=== PATIENT | male | born 1955 | race Caucasian/White ===

== ENCOUNTER 2019-12-28 12:31 | Observation (INO) | payer SELFPAY ==
[2019-12-28] MEDS ORDERED: ASPIRIN TABLET 325 MG TAB PO ONE (12:47)
[2019-12-28] MEDS ORDERED: SODIUM CHLORIDE 0.9% (FLUSH) 10 ML SYG IV PRN ×2 (12:47→16:34)
--- NOTE | 2019-12-28 12:51 | ED.PDOC ---
History of Present Illness - General Time Seen by Provider: 12/28/19 12:41 Source: patient, RN notes reviewed, Vital Signs reviewed, family Exam Limitations: no limitations - History of Present Illness Initial Comments: Pt is a 64 yo male with PMH of HTN and hypercholesterolemia who presents to ED with sone for 3 day h/o confusion and intermitent expressive aphasia. Pt states he has been under a lot of stress at work recently and has not slept well for several days. Son states the past 3 days he has had episodes of slurred speech and episodes where he starts a sentence, but cant find the words he is trying to say. Pt states he just feels tired and attributes speech abnormalities to his tongue being dry. He denies any weakness, SANTOS, NVD, CP, SOB or dizziness. Allergies/Adverse Reactions: Allergies NO KNOWN ALLERGY Allergy (Verified 03/12/15 06:09) Home Medications: Ambulatory Orders Ascorbic Acid [Vitamin C] 2,000 mg PO DAILY 03/12/15 B-Complex Vitamins [Vitamin B Complex] 1 tab PO DAILY 03/12/15 Cholecalciferol [Vitamin D3] 1,000 unit PO DAILY 03/12/15 Coenzyme Q10 (Ubidecarenone) [Coq-10] 1 cap PO DAILY 03/12/15 Non-Formulary Medication 1 ea PO DAILY 03/12/15 Non-Formulary Medication 1 ea PO DAILY 03/12/15 [place]-3 Fatty Acids [[place] 3] 2 cap PO DAILY 03/12/15 Pomegranate (Punica Granatum) [Pomegranate Extract] 750 mg PO DAILY 03/12/15 Telmisartan-Hydrochlorothiazid [Micardis Hct 40-12.5 mg] 1 tab PO DAILY 03/12/15 Review of Systems - Review of Systems Constitutional: Denies: chills, fever, weakness EENTM: Denies: blurred vision, nose congestion, throat swelling Respiratory: Denies: cough, short of breath Cardiology: Denies: chest pain, palpitations, syncope Gastrointestinal/Abdominal: Denies: abdominal pain, diarrhea, nausea, vomiting Genitourinary: States: no symptoms reported Musculoskeletal: Denies: back pain, neck pain Skin: States: no symptoms reported Neurological: States: see HPI All other Systems: Reviewed and Negative Past Medical History (General) - Patient Medical History Hx Congestive Heart Failure: No Hx Diabetes: No Family Medical History - Family History Mother Family History: No Known Physical Exam - Physical Exam General Appearance: Alert, Comfortable, No apparent distress, Well Developed Ears, Nose, Throat: normal pharynx Neck: non-tender, full range of motion, supple Respiratory: chest non-tender, lungs clear, normal breath sounds, no respiratory distress, no accessory muscle use Cardiovascular/Chest: normal peripheral pulses, regular rate, rhythm, no edema, no murmur Gastrointestinal/Abdominal: non tender, soft, no pulsatile mass Back Exam: normal inspection, no vertebral tenderness Extremity: normal range of motion, no calf tenderness 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 Speech is fluent and conversational. Can name President and next Holiday. Oriented x 4. Strength is 5/5 in all 4 extremities. Skin Exam: normal color, warm/dry Progress - Progress Progress: 12/28/19 14:13 Patient presents with confusion and altered speech for the past 3 days. On exam, patient has no neuro deficits. CT of the head is unremarkable. Labs show electrolyte maladies of hyponatremia of 127 and hypokalemia of 3.1. Discussed with patient results and possible hyponatremia causing his symptoms. He agrees with admission for further treatment and evaluation. 12/28/19 14:51 D/W Jarred Mir, hospitalist, will place in observation. Pt agrees with plan. - Results/Orders Results/Orders: EKG- NSR, rate 76, normal intervals, no ST abnormality CHEST XRAY Study: Single Frontal Radiograph of the Chest. Indication:Slurred speech Comparison: None Impression: Cardiomegaly. Mild right basilar atelectasis versus developing consolidation. Short-term follow-up recommended. No pleural effusion or pneumothorax. CT HEAD Impression: No acute intracranial abnormality by CT. If high clinical concern for acute ischemia, correlation with MRI recommended. 12/28/19 12:47 IV Care:Saline Lock per Protoc QSHIFT Telemetry .ONCE Sodium Chloride 0.9% (Flush) [Saline Flush Syringe] 10 ml IV PRN PRN 12/28/19 13:00 EKG STAT Laboratory Results - last 24 hr 12/28/19 12/28/19 12/28/19 12:55 12:55 12:55 WBC 8.4 RBC 4.64 L Hgb 15.5 Hct 43.8 MCV 94.4 H MCH 33.5 H MCHC 35.5 RDW 14.0 Plt Count 195 MPV 7.4 Absolute Neuts (auto) 6.40 Absolute Lymphs (auto) 1.20 Absolute Monos (auto) 0.80 Absolute Eos (auto) 0.10 Absolute Basos (auto) 0.00 Neutrophils % 76.4 Lymphocytes % 13.6 L Monocytes % 8.9 Eosinophils % 0.6 L Basophils % 0.5 PT 10.3 INR 1.04 PTT (SP) 25.3 Sodium 127 L Potassium 3.1 L Chloride 88 L Carbon Dioxide 26 Anion Gap 16.1 BUN 8 Creatinine 0.75 BUN/Creatinine Ratio 10.7 Random Glucose 102 Serum Osmolality 253.7 L* Calcium 9.0 Total Bilirubin 0.9 AST 26 ALT 28 Alkaline Phosphatase 58 Creatine Kinase 276 H* CK-MB (CK-2) 11.2 H* CK-MB (CK-2) % 4.06 H Troponin I < 0.02 Serum Total Protein 7.4 Albumin 4.1 Globulin 3.3 Albumin/Globulin Ratio 1.2 Urine Color Urine Appearance Urine pH Ur Specific [place] Urine Protein Urine Glucose (UA) Urine Ketones Urine Blood Urine Nitrite Urine Bilirubin Urine Urobilinogen Ur Leukocyte Esterase Urine RBC Urine WBC Ur Epithelial Cells Urine Bacteria 12/28/19 13:13 WBC RBC Hgb Hct MCV MCH MCHC RDW Plt Count MPV Absolute Neuts (auto) Absolute Lymphs (auto) Absolute Monos (auto) Absolute Eos (auto) Absolute Basos (auto) Neutrophils % Lymphocytes % Monocytes % Eosinophils % Basophils % PT INR PTT (SP) Sodium Potassium Chloride Carbon Dioxide Anion Gap BUN Creatinine BUN/Creatinine Ratio Random Glucose Serum Osmolality Calcium Total Bilirubin AST ALT Alkaline Phosphatase Creatine Kinase CK-MB (CK-2) CK-MB (CK-2) % Troponin I Serum Total Protein Albumin Globulin Albumin/Globulin Ratio Urine Color Yellow Urine Appearance Clear Urine pH 7.0 Ur Specific [place] 1.010 Urine Protein Negative Urine Glucose (UA) Negative Urine Ketones 40 H Urine Blood Trace-intact H Urine Nitrite Negative Urine Bilirubin Negative Urine Urobilinogen 0.2 Ur Leukocyte Esterase Negative Urine RBC 5-10 H Urine WBC 1-3 Ur Epithelial Cells 0-1 Urine Bacteria Rare Departure - Departure Clinical Impression: Hyponatremia, Hypokalemia Altered mental state Qualifiers: Altered mental status type: somnolence Qualified Code(s): R40.0 - Somnolence Time of Disposition: 14:16 Disposition: Admit Patient Condition: Fair Referrals: JOLYNN CAMACHO [Primary Care Provider] - 1-2 Weeks Home Medications: Ambulatory Orders Ascorbic Acid [Vitamin C] 2,000 mg PO DAILY 03/12/15 B-Complex Vitamins [Vitamin B Complex] 1 tab PO DAILY 03/12/15 Cholecalciferol [Vitamin D3] 1,000 unit PO DAILY 03/12/15 Coenzyme Q10 (Ubidecarenone) [Coq-10] 1 cap PO DAILY 03/12/15 Non-Formulary Medication 1 ea PO DAILY 03/12/15 Non-Formulary Medication 1 ea PO DAILY 03/12/15 [place]-3 Fatty Acids [[place] 3] 2 cap PO DAILY 03/12/15 Pomegranate (Punica Granatum) [Pomegranate Extract] 750 mg PO DAILY 03/12/15 Telmisartan-Hydrochlorothiazid [Micardis Hct 40-12.5 mg] 1 tab PO DAILY 03/12/15 Decision To Admit - Decistion To Admit Decision to Admit Reason: Admit from ER Decision to Admit Date: 12/28/19 Decision to Admit Time: 14:15
--- NOTE | 2019-12-28 13:28 | RAD ---
Study: Single Frontal Radiograph of the Chest. Indication:Slurred speech Comparison: None Impression: Cardiomegaly. Mild right basilar atelectasis versus developing consolidation. Short-term follow-up recommended. No pleural effusion or pneumothorax. Electronically signed by: Dorian Noland MD 12/28/2019 1:27 PM CDT
--- NOTE | 2019-12-28 13:28 | CT ---
Study: CT of the Head. Indication: slurred speech Technique: Axial CT images of the head were acquired without intravenous contrast. This exam was performed according to our departmental dose-optimization program, which includes automated exposure control, adjustment of the mA and/or kV according to patient size and/or use of iterative reconstruction technique. Comparison: None. Findings: No acute ischemia, acute hemorrhage, mass, mass effect, midline shift, or extra-axial fluid collection identified by CT. Ventricles are normal in configuration without hydrocephalus. Brain parenchyma demonstrates a normal appearance for patient age. Paranasal sinuses are adequately aerated. Mastoid air cells are adequately aerated. Osseous structures and soft tissues are unremarkable. Impression: No acute intracranial abnormality by CT. If high clinical concern for acute ischemia, correlation with MRI recommended. Electronically signed by: Dorian Noland MD 12/28/2019 1:26 PM CDT
--- NOTE | 2019-12-28 15:36 | HP ---
SUPERVISING PHYSICIAN: Brian Moy MD CHIEF COMPLAINT: Mild confusion with some slurred speech. HISTORY OF PRESENT ILLNESS: Mr. Hatch is a 64-year-old male patient with a past medical history of hypertension, hypercholesterolemia and chronic alcohol abuse who presented to the Emergency Room at the request of his son after he had 3 days of mild confusion and intermittent expressive aphasia. The patient endorses that he has been under a lot of stress at work and has not been sleeping for well over a week. His son endorses that in the last 3 days, he feels like his dad has had some slurred speech, he has been staying up all night long and just did not seem to be acting himself at times. The patient denied any headaches, nausea, vomiting, diarrhea, chest pain, shortness of breath or dizziness. He does endorse that he drinks about 8 to 10 beers a day, but can quit anytime he wants to. On exam in the ER, he had no obvious neurologic deficits, but his labs did show he had mild hyponatremia with a sodium of 127 with serum osmolality 253. Magnesium was a little low at 1.6. Given his hyponatremia and his neurological symptoms, the patient is going to be placed in observation for close neurological monitoring and management. He was placed in observation in stable condition. PAST MEDICAL HISTORY: 1. Hypertension. 2. Hypercholesterolemia. PAST SURGICAL HISTORY: No major surgeries. HOME MEDICATIONS: 1. Micardis 40-12.5 1 tablet daily. 2. Wellbutrin 150 mg daily. 3. Multiple vitamin [id number] supplements. 4. Vitamin D3. ALLERGIES: NO KNOWN DRUG ALLERGIES. FAMILY HISTORY: His mother and father are both still alive. Father is 85 with a history of myocardial infarction and diabetes. Mother is still alive at 82 with some stomach problems. He has 3 sisters who are all healthy. SOCIAL HISTORY: The patient does drink alcohol on a regular basis. He states he drinks about 8 beers a day. He also smokes about 2 packs of cigarettes a day. He has a significant other female. He has a stepson. He is a contract pumper. He does not use any illicit drugs. He lives in [place], [place]. REVIEW OF SYSTEMS: CONSTITUTIONAL: Denies any fevers, chills or generalized weakness. HEENT: Negative for blurred vision, headaches, sore throats, earaches, nasal congestion. RESPIRATORY: Negative for coughing, wheezing or shortness of breath. CARDIOVASCULAR: Negative for chest pain, palpitations or syncopal episodes. GASTROINTESTINAL: Negative for nausea, vomiting, diarrhea, constipation or abdominal pain. GENITOURINARY: Negative for dysuria, hematuria, polyuria. MUSCULOSKELETAL: Negative for back pain, joint pain or swelling. SKIN: Negative for lesions, rashes, moles or unexplained changes. NEUROLOGIC: As noted in history of present illness. HEMATOLOGIC: Negative for easy bruising, unexplained bleeding or transfusion reactions. PHYSICAL EXAMINATION: VITAL SIGNS: Temperature 98.2, pulse 80, blood pressure 146/95, respirations 18, saturation 98% on room air. GENERAL: The patient is comfortable, in no acute distress. He is a little anxious, but he is alert. HEENT: Tympanic membranes clear bilaterally. Oropharynx is pink, moist without any lesions. NECK: Supple, nontender with full range of motion. No jugular venous distention noted. RESPIRATORY: Lung sounds are clear to auscultation bilaterally without any rhonchi, wheezes or rales. CARDIOVASCULAR: Regular rate and rhythm without any appreciable murmurs, gallops, or rubs. ABDOMEN: Soft, nontender. Positive bowel sounds. EXTREMITIES: There is no cyanosis, clubbing or edema. BACK: No vertebral or CVA tenderness. NEUROLOGIC: Cranial nerves II-XII are grossly intact. Speech was fluent and conversant. There were no obvious deficits. Strength was 5/5 in all 4 extremities. Facial features are symmetrical. Extraocular movements are within normal limits. There is no nystagmus noted. The patient is alert and oriented times three. SKIN: Warm, pink and dry. LABORATORY: CBC showed white count 8,400 without a left shift, hemoglobin 15.5, hematocrit 42.8, platelet count 195,000. Coagulation studies showed normal PT, PTT. Chemistries showed sodium 127, potassium 3.1, BUN 8, creatinine 0.75, serum osmolality 253. Magnesium low at 1.6. Liver functions all within normal limits. CK a little elevated at 276. Troponin less than 0.02. Urinalysis showed 40 ketones, trace of intact blood and microscopic revealed 5 to 10 RBCs. His toxicology screen was negative for both alcohol and all other as tested. RADIOLOGY: CT of the head per radiologic interpretation showed no acute intracranial abnormalities. Single-view chest x-ray per radiologic interpretation showed cardiomegaly with some mild basilar atelectasis versus developing consolidation. No pleural effusions or pneumothorax. ASSESSMENT: 1. Hyponatremia, moderate. 2. History of chronic alcohol abuse in the form of beer, possibly exacerbating #1. 3. Hypertension, poorly controlled with Micardis with thiazide diuretic possibly contributing to #1. 4. Nicotine addiction in a smoker. PLAN: Mr. Hatch is going to be placed in observation overnight for close neurological monitoring and telemetry given his hyponatremia and reported symptoms. Given he does drink quite heavily, he says he has not drank in 3 days, just to be cautious, we will put him on some Librium p.r.n. as needed for anxiety as well as I will give him some IV fluids in the form of multivitamin infusion with some thiamine. We will recheck his labs in the morning. He will have neuro checks overnight. He will be on Lovenox. Until the patient can transition to outpatient management, which I anticipate will probably be within the next 24 to 48 hours, we will continue to monitor and treat as needed. #[id number] [facility]
[2019-12-28] MEDS ORDERED: ACETAMINOPHEN 325 MG TAB PO PRN (16:34)
[2019-12-28] MEDS ORDERED: ONDANSETRON INJ 4 MG/2 ML VIAL IV PRN (16:34)
[2019-12-28] MEDS ORDERED: chlordiazePOXIDE HCL 25 MG CAP PO PRN (16:38)
[2019-12-28] MEDS ORDERED: POTASSIUM CHLORIDE 20 MEQ TAB PO ONE (16:40)
[2019-12-28] MEDS ORDERED: IV SET AND CAP CHANGE INJ INJ SCH (17:00)
[2019-12-28] MEDS ORDERED: MULTIPLE VITAMIN INJ 10 ML, THIAMINE HCL INJ 100 MG in SODIUM CHLORIDE 0.9% 1000ML 1,00... IVS SCH (17:00)
[2019-12-28] MEDS ORDERED: MAGNESIUM SULFATE PREMIX 2GM 2 GM in PREMIX BAG 1 BAG IVPB ONE (20:39)
[2019-12-28] MEDS ORDERED: MAGNESIUM SULFATE PREMIX 2GM 50 ML IVPB ONE (20:46)
[2019-12-28] MEDS ORDERED: TEMAZEPAM 15 MG CAP PO PRN (22:22)
[2019-12-29] MEDS ORDERED: NICOTINE PATCH 21 MG TD ONE (07:02)
[2019-12-29] MEDS ORDERED: Wellbutrin XL 150 MG TAB PO SCH (09:00)
[2019-12-29] MEDS ORDERED: REMOVE OLD PATCH TOP SCH (09:00)
[2019-12-29] MEDS ORDERED: NICOTINE PATCH 21 MG TD SCH (09:00)
[2019-12-29 10:41] VITALS: BP 125/81; TEMP 98.1; O2SAT 94
[2019-12-29] MEDS ORDERED: ENOXAPARIN SODIUM 40 MG/0.4 ML SYG SUBCU SCH (21:00)
--- NOTE | 2020-01-04 08:13 | DS ---
SUPERVISING PHYSICIAN: Brian Moy MD ADMISSION DIAGNOSIS: 1. Hyponatremia, moderate. 2. History of chronic alcohol abuse. 3. Hypertension, poorly controlled. 4. Nicotine addiction in a smoker. DISCHARGE DIAGNOSIS: 1. Moderate hyponatremia, resolved. 2. History of chronic alcohol abuse. 3. Hypertension, poorly controlled. 4. Nicotine addiction in a smoker. REASON FOR HOSPITALIZATION: Mr. Hatch is a 64-year-old male patient with a past medical history of hypertension, hypercholesterolemia and chronic alcohol abuse who presented to the Emergency Room at the request of his son after he had 3 days of mild confusion and intermittent expressive aphasia. The patient endorses that he has been under a lot of stress at work and has not been sleeping for well over a week. His son endorses that in the last 3 days, he feels like his dad has had some slurred speech, he has been staying up all night long and just did not seem to be acting himself at times. The patient denied any headaches, nausea, vomiting, diarrhea, chest pain, shortness of breath or dizziness. He does endorse that he drinks about 8 to 10 beers a day, but can quit anytime he wants to. On exam in the ER, he had no obvious neurologic deficits, but his labs did show he had mild hyponatremia with a sodium of 127 with serum osmolality 253. Magnesium was a little low at 1.6. Given his hyponatremia and his neurological symptoms, the patient is going to be placed in observation for close neurological monitoring and management. He was placed in observation in stable condition. LABORATORY: White count 8,400, hemoglobin 15.4, hematocrit 43.8, platelet count 195,000. Differential is without a left shift. Coagulation studies were within normal limits. On discharge, his electrolytes were normalized. His sodium had gone from 127 to 137. Serum osmolality went from 253 to 270. Magnesium was normalized at 2.2 from 1.6 on admission. Urinalysis showed 40 ketones, trace blood, 5 to 10 RBCs. RADIOLOGY: Chest x-ray per radiologic interpretation showed cardiomegaly with a mild right basilar atelectasis versus developing consolidation. CT of the head per radiologic interpretation showed no acute intracranial abnormalities. EKG showed a sinus rhythm with a few PACs, no ST or T-wave changes to indicate any acute ischemia. HOSPITAL COURSE: Mr. Hatch was admitted for moderate hyponatremia. He was put on fluid restrictions. His hydrochlorothiazide was held and labs rechecked the next morning and he was found to have normalized his sodium. He had clinically improved well enough to continue with outpatient management. Therefore, he was discharged to followup with Dr. Fabian Rushing, his primary care provider. PLAN: Mr. Hatch is discharged on 12/29/[address] Fabian Rushing in one to two weeks in [place]. He was not to take his Micardis until resumed by his doctor. I did give him a prescription for telmisartan 40 mg because it was felt the hydrochlorothiazide in his Micardis was causing some of his hyponatremia as well as possibly related to his drinking habits. He was encouraged to stop drinking as well as to stop smoking. He was to follow a regular diet as tolerated and increase activity as tolerated. He was to return to the ED if he had any concerning symptoms. MEDICATIONS PRESCRIBED ON DISCHARGE: 1. Telmisartan 40 mg daily, #14, no refills. CONDITION ON DISCHARGE: Stable and improved. DISPOSITION: The patient was discharged home. #[id number] [facility]
== END 2019-12-29 11:52 | disposition home or self-care (01) ==
LOC: ER 12:31 → MS 15:34
PROVIDERS: ADMIT Family Medicine; ATTEND Nurse Practitioner Family
DX: E87.1 Hypo-osmolality and hyponatremia (principal); E83.42 Hypomagnesemia; E87.6 Hypokalemia; F10.20 Alcohol dependence, uncomplicated; R41.0 Disorientation, unspecified; R47.01 Aphasia; R47.81 Slurred speech; I11.9 Hypertensive heart disease without heart failure; E78.00 Pure hypercholesterolemia, unspecified; I49.1 Atrial premature depolarization; F17.210 Nicotine dependence, cigarettes, uncomplicated; Z79.899 Other long term (current) drug therapy; Z82.49 Family history of ischemic heart disease and other diseases of the circulatory system; Z83.3 Family history of diabetes mellitus; Y90.9 Presence of alcohol in blood, level not specified
CPT/HCPCS: 96365; 96375; J7030; J3411; A4216; J3475; 80048; 82553; 80053; 80307; 36415 ×2; 81001; 85025; 82550; 80320; 83735 ×2; 85730; 85610; 84484; 71045; 70450; 94760 ×2; 99285; 93005; G0378

== ENCOUNTER 2019-12-30 10:24 | Emergency (ER) | payer SELFPAY ==
[2019-12-30] MEDS ORDERED: FOLIC ACID 1 MG TAB PO ONE (11:02)
[2019-12-30] MEDS ORDERED: THIAMINE HCL 100 MG TAB PO ONE (11:03)
--- NOTE | 2019-12-30 13:33 | ED.PDOC ---
History of Present Illness - General Chief Complaint: Behavioral / Psych Stated Complaint: paranoia,feelings of guilt,losing control Time Seen by Provider: 12/30/19 10:41 Source: patient Exam Limitations: no limitations - History of Present Illness Initial Comments: The patient is a 64-year-old male presents emergency room secondary to continued psychiatric difficulties. The patient was in the hospital a couple of days ago secondary to intermittent confusion that was felt to be likely due to hyponatremia. The patient was hyponatremic but that has been corrected. He is not confused. The patient has been struggling with apparently some anxiety and depression issues that have been worsening over the last few weeks at least. Before that it does sound like he had had some paranoid behavior most of his life. Additionally he has been having difficulty with sleeping. He quit drinking 5 days ago as well which may be complicating the picture. On examination the patient does seem to have a difficult time collecting his ideas. There is no flight of ideas. He does become easily frustrated. He does appear to have something of a pill-rolling tremor in his right hand when he is at rest. The patient takes Wellbutrin. He was pulled off of hydrochlorothiazide which was likely contributing to the hyponatremia. He has apparently not been on Wellbutrin very long. The patient has had suicidal ideation but does not have a plan and reports at this point that he does not have intention to do so. His son is with him today. The patient has been having a difficult time doing his normal routine work. Things that he has been doing for 40 years he is having a difficult time doing mentally. He had a head CT here a few days ago which showed no acute pathology. He is not exhibiting any focal neurological deficits that would be consistent with a recent stroke. Timing/Duration: unsure Severity: moderate Improving Factors: nothing Worsening Factors: nothing Associated Symptoms: other - Poor sleep Allergies/Adverse Reactions: Allergies NO KNOWN ALLERGY Allergy (Verified 03/12/15 06:09) Home Medications: Ambulatory Orders Ascorbic Acid [Vitamin C] 2,000 mg PO DAILY 03/12/15 B-Complex Vitamins [Vitamin B Complex] 1 tab PO DAILY 03/12/15 Cholecalciferol [Vitamin D3] 1,000 unit PO DAILY 03/12/15 Coenzyme Q10 (Ubidecarenone) [Coq-10 100 mg] 1 cap PO DAILY 03/12/15 Non-Formulary Medication 1 ea PO DAILY 03/12/15 Non-Formulary Medication 1 ea PO DAILY 03/12/15 [place]-3 Fatty Acids [[place]mit 3 1000 mg] 2 cap PO DAILY 03/12/15 Pomegranate (Punica Granatum) [Pomegranate Extract] 750 mg PO DAILY 03/12/15 BuPROPion XL [Wellbutrin XL] 150 mg PO DAILY 12/28/19 Telmisartan 40 mg PO DAILY #14 tab 12/29/19 Review of Systems - Review of Systems Constitutional: States: malaise EENTM: States: no symptoms reported Respiratory: States: no symptoms reported Cardiology: States: no symptoms reported Gastrointestinal/Abdominal: States: no symptoms reported Genitourinary: States: no symptoms reported Musculoskeletal: States: no symptoms reported Skin: States: no symptoms reported Neurological: States: see HPI, anxiety, depressed, emotional problems, tremors Endocrine: States: no symptoms reported All other Systems: No Change from Baseline Past Medical History (General) - Patient Medical History Hx Seizures: No Hx Stroke: No Hx Asthma: No Hx of COPD: No Hx Congestive Heart Failure: No Hx Pacemaker: No Hx Hypertension: Yes Hx Thyroid Disease: No Hx Diabetes: No Hx MRSA: No - Vaccination History Hx Influenza Vaccination: No Hx Pneumococcal Vaccination: No - Social History Hx Tobacco Use: Yes Hx Alcohol Use: No Hx Substance Use: No Hx Physical Abuse: No Hx Emotional Abuse: No Family Medical History - Family History Mother Family History: No Known Physical Exam - Physical Exam General Appearance: Agitated, Alert, Restless Eye Exam: bilateral normal Ears, Nose, Throat: hearing grossly normal, normal pharynx Neck: full range of motion, supple Respiratory: lungs clear, normal breath sounds, no respiratory distress, no accessory muscle use Cardiovascular/Chest: normal peripheral pulses, no edema, other - Regular rate Peripheral Pulses: radial,right: 2+, radial,left: 2+ Rectal Exam: deferred Extremity: normal range of motion, no calf tenderness, normal capillary refill 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 Skin Exam: normal color Comments: Vital Signs - 24 hr 12/30/19 12/30/19 12/30/19 10:41 11:38 12:36 Temperature 98.6 F Pulse Rate [ 82 81 79 Right Brachial] Respiratory 20 20 16 Rate Blood Pressure 147/88 157/90 141/86 [Right Arm] O2 Sat by Pulse 95 95 96 Oximetry 12/30/19 13:00 Temperature Pulse Rate [ 73 Right Brachial] Respiratory 18 Rate Blood Pressure 140/94 [Right Arm] O2 Sat by Pulse 98 Oximetry Progress - Progress Progress: 12/30/19 13:35 The patient is a 64-year-old male presents emergency room secondary to increased agitation, anxiety and depression symptoms along with significant insomnia and increased difficulties performing his routine mental tasks related to his job. Additionally the patient quit drinking around 5 days ago and may be having some mild withdrawal complicating the picture clinically as well. The patient has had suicidal ideation though currently he denies a plan to me. It does appear that he has had much longer term issues with obsessive and paranoid thought patterns when discussing his history with his son. He denies any substance abuse aside from the alcohol. No history of delirium tremens according to him. The patient does appear to have a mild tremor at rest in his right hand on exam today. No long-term history of dementia to this point. The patient should start taking a vitamin B complex tablet daily and was given doses of folate and thiamine here. The patient is going to the crisis unit in [place] this afternoon. Psychiatric evaluation is warranted in this patient. Vital signs are stable. Electrolytes are remaining stable. The patient will be discharged for follow-up as above. His son will take him. oswald [email or web address] [id number] - Results/Orders Results/Orders: Laboratory Tests 12/30/19 12/30/19 11:11 11:11 WBC 9.4 RBC 4.64 L Hgb 15.5 Hct 44.3 MCV 95.6 H MCH 33.5 H MCHC 35.0 RDW 14.2 Plt Count 217 MPV 7.4 Absolute Neuts (auto) 7.10 H Absolute Lymphs (auto) 1.20 Absolute Monos (auto) 0.90 H Absolute Eos (auto) 0.10 Absolute Basos (auto) 0.10 Neutrophils % 75.7 Lymphocytes % 13.1 L Monocytes % 10.0 H Eosinophils % 0.6 L Basophils % 0.6 Sodium 134 L Potassium 3.6 Chloride 100 L Carbon Dioxide 24 Anion Gap 13.6 BUN 11 Creatinine 0.81 BUN/Creatinine Ratio 13.6 Random Glucose 108 H D Serum Osmolality 268.2 L Calcium 8.7 Magnesium 1.9 Total Bilirubin 0.8 AST 25 ALT 28 Alkaline Phosphatase 56 Serum Total Protein 6.9 Albumin 3.9 Globulin 3.0 Albumin/Globulin Ratio 1.3 TSH 3.35 Departure - Departure Clinical Impression: Suicidal ideation Alcohol withdrawal Qualifiers: Complication of substance-induced condition: uncomplicated Qualified Code(s): F10.230 - Alcohol dependence with withdrawal, uncomplicated Depression Qualifiers: Depression Type: unspecified Qualified Code(s): F32.9 - Major depressive disorder, single episode, unspecified Insomnia Qualifiers: Insomnia type: unspecified Qualified Code(s): G47.00 - Insomnia, unspecified Disposition: Discharge to Home or Self Care Condition: Fair Departure Forms: ED Discharge - Pt. Copy, Patient Portal Self Enrollment Diet: regular diet Activity: increase activity as tolerated Referrals: JOLYNN CAMACHO [Primary Care Provider] - 1-2 Weeks Home Medications: Ambulatory Orders Ascorbic Acid [Vitamin C] 2,000 mg PO DAILY 03/12/15 B-Complex Vitamins [Vitamin B Complex] 1 tab PO DAILY 03/12/15 Cholecalciferol [Vitamin D3] 1,000 unit PO DAILY 03/12/15 Coenzyme Q10 (Ubidecarenone) [Coq-10 100 mg] 1 cap PO DAILY 03/12/15 Non-Formulary Medication 1 ea PO DAILY 03/12/15 Non-Formulary Medication 1 ea PO DAILY 03/12/15 [place]-3 Fatty Acids [[place] 3 1000 mg] 2 cap PO DAILY 03/12/15 Pomegranate (Punica Granatum) [Pomegranate Extract] 750 mg PO DAILY 03/12/15 BuPROPion XL [Wellbutrin XL] 150 mg PO DAILY 12/28/19 Telmisartan 40 mg PO DAILY #14 tab 12/29/19 Additional Instructions: The patient is a 64-year-old male presenting with worsening symptoms of depression and insomnia. The patient was evaluated by [facility] over the phone and the patient is going to the crisis unit in [place] this afternoon. His son is taking him there. He does need to continue a B complex vitamin.
[2019-12-30 13:52] VITALS: BP 157/92; TEMP 97.7; O2SAT 97
[2019-12-30] MEDS ORDERED: EPINEPHrine HCL AMP 1 MG/ML AMP ONE (20:24)
== END 2019-12-30 13:52 | disposition home or self-care (01) ==
LOC: ER 10:24
DX: R45.851 Suicidal ideations (principal); F10.230 Alcohol dependence with withdrawal, uncomplicated; F32.9 Major depressive disorder, single episode, unspecified; G47.00 Insomnia, unspecified; I10 Essential (primary) hypertension; Z79.899 Other long term (current) drug therapy; Z87.891 Personal history of nicotine dependence